=== PATIENT | male | born 1985 | race Caucasian/White ===

== ENCOUNTER 2019-10-31 19:06 | Emergency (ER) | payer OTHER ==
[~2019-10-31] VITALS: Ht 182.9 cm; Wt 77.1 kg
[~2019-10-31 19:06] MED LIST: NABUMETONE 750750 M1 PO; ULTRAM 50MG TAB50 MG PO
[2019-10-31] MEDS ORDERED: ADDERALL 30 MG30 MG (19:12)
[2019-10-31] MEDS ORDERED: NAPROSYN500 MG PO (21:32)
[2019-10-31] MEDS ORDERED: NORFLEX100 MG PO (21:32)
[2019-10-31 22:34] VITALS: BP 118/88
== END 2019-10-31 22:30 | disposition home or self-care (01) ==
LOC: ER 19:06
DX: S16.1XXA Strain of muscle, fascia and tendon at neck level, initial encounter (principal); S60.410A Abrasion of right index finger, initial encounter; S09.8XXA Other specified injuries of head, initial encounter; R20.2 Paresthesia of skin; M25.512 Pain in left shoulder; V49.49XA Driver injured in collision with other motor vehicles in traffic accident, initial encounter; Y93.89 Activity, other specified; Y92.481 Parking lot as the place of occurrence of the external cause; Y99.8 Other external cause status